=== PATIENT | female | born 1970 | race Caucasian/White ===

== ENCOUNTER 2020-07-05 14:04 | Inpatient (IN) | payer OTHER ==
[~2020-07-05] VITALS: Ht 157.5 cm; Wt 77.1 kg
[2020-07-05 14:27] VITALS: BP 173/106; Ht 157.5 cm; Wt 77.1 kg
--- NOTE | 2020-07-05 14:30 | NUR ---
Arrived as direct admit from physician's office, notified CANDACE Schultz, IV access started by BERNADETTE Ashford in Lt AC with 20 ga cath x 2 attempts (including 1 attempt by this RN), tao well, no s/s of acute distress observed.
[2020-07-05 15:24] LABS: BASOPHILS 0.5 % (0-2); EOSINOPHILS 3.6 % (0-7); HEMATOCRIT 38.7 % (36.0-48.0); HEMOGLOBIN 13.1 g/dL (12-16); IMMATURE GRANULOCYTES 0.4 % (0-5); LYMPHOCYTE ABS# 2.19 10x3/uL (1.18-3.74); LYMPHOCYTES 28.2 % (15-50); MCH 29.6 pg (26.0-34.0); MCHC 33.9 g/dL (31.0-37.0); MCV 87.4 fL (80.0-100.0); MEAN PLATELET VOLUME 10.5 fL (7.4-10.4); MONOCYTES 7.6 % (2-11); NEUTROPHIL ABS# 4.63 10x3/uL (1.56-6.13); NEUTROPHILS 59.7 % (40-80); PLATELET COUNT 284 10x3/uL (130-400); RBC 4.43 10x6/uL (4.00-5.40); RDW 12.5 % (11.5-14.5); WBC 7.8 10x3/uL (4.8-10.8)
[2020-07-05 15:39] LABS: APTT 31.4 SECONDS (22.8-39.4); INR 1.11 (0.85-1.17); PROTIME 13.2 SECONDS (11.6-15.0)
[2020-07-05 15:58] LABS: ALBUMIN 3.9 g/dL (3.4-5.0); ALKALINE PHOSPHATASE 65 U/L (30-120); ALT (SGPT) 22 U/L (10-68); BILIRUBIN - TOTAL 0.35 mg/dL (0.2-1.3); CALC OSMOLALITY 275 mosm/kg (275-300); CARBON DIOXIDE 27.9 mmol/L (21.0-32.0); CHLORIDE - SERUM 102 mmol/L (98-107); CKMB 1.1 U/L (0.0-3.6); CREATINE KINASE 88 UL (21-215); CREATININE - SERUM 0.9 mg/dL (0.6-1.3); GLUCOSE 106 mg/dL (74-106); POTASSIUM - SERUM 3.6 mmol/L (3.5-5.1); PRO BNP 173 pg/mL (0-125); PROTEIN - SERUM 7.6 g/dL (6.4-8.2); SODIUM 138 mmol/L (136-145); UREA NITROGEN 13 mg/dL (7-18); eGFR NON AFRICAN AMERICAN 70 mL/min (90-120)
[2020-07-05 15:59] LABS: TROPONIN-I < 0.017 ng/mL (0.000-0.060)
--- NOTE | 2020-07-05 16:05 | NUR ---
BP on admit was 173/106, gave hydralazine as ordered will brien in about an hour.
[2020-07-05] MEDS ORDERED: BAYER CHEWABLE81 MG PO (17:37)
[2020-07-05] MEDS ORDERED: MELATONIN10 M1 PO (17:38)
[2020-07-05] MEDS ORDERED: MULTI-DAY VITAM1 TAB PO (17:38)
[2020-07-05] MEDS ORDERED: IBUPROFEN800 MG PO (17:40)
[2020-07-05] MEDS ORDERED: ACETAMINOPHEN500 M1 PO (17:41)
[2020-07-05] MEDS ORDERED: LISINOPRIL20 MG PO (17:41)
[2020-07-05 17:45] VITALS: BP 142/84
[2020-07-05 18:34] VITALS: BP 129/70
[2020-07-05 21:14] VITALS: BP 141/87
--- NOTE | 2020-07-05 22:18 | NUR ---
PT WAS GIVEN TYLENOL EARLIER FOR C/O HEADACHE. SHE IS NOW C/O NO IMPROVEMENT IN HER HEADACHE AND WANTS SOMETHING DONE ABOUT IT. WILL PAGE MD FOR FURTHER ORDERS.
--- NOTE | 2020-07-05 22:52 | NUR ---
SPOKE WITH ELI HO OPTOMETRIST FOR [facility]. REPORTED HEADACHE/GLOBAL PAIN/NKA. ORDERS WILL BE WRITTEN AND ADMINISTERED.
[2020-07-05 23:00] LABS: CKMB 1.1 U/L (0.0-3.6); CREATINE KINASE 94 UL (21-215)
[2020-07-05 23:02] LABS: TROPONIN-I < 0.017 ng/mL (0.000-0.060)
--- NOTE | 2020-07-05 23:27 | NUR ---
PT HAS BEEN MEDICATED WITH NORCO 5MG X 1 FOR HEADACHE.
--- NOTE | 2020-07-05 23:27 | NUR ---
ICEPACK PROVIDED AT PT REQUEST.
[2020-07-06 01:47] VITALS: BP 118/80
[2020-07-06 04:04] LABS: CREATINE KINASE 90 UL (21-215)
[2020-07-06 04:05] LABS: TROPONIN-I < 0.017 ng/mL (0.000-0.060)
[2020-07-06 05:50] VITALS: BP 126/74
[2020-07-06 06:15] LABS: BASOPHILS 0.3 % (0-2); EOSINOPHILS 1.8 % (0-7); HEMOGLOBIN 13.7 g/dL (12-16); IMMATURE GRANULOCYTES 0.5 % (0-5); LYMPHOCYTE ABS# 2.91 10x3/uL (1.18-3.74); LYMPHOCYTES 30.3 % (15-50); MCH 28.8 pg (26.0-34.0); MCHC 33.4 g/dL (31.0-37.0); MCV 86.1 fL (80.0-100.0); MEAN PLATELET VOLUME 10.5 fL (7.4-10.4); MONOCYTES 7.2 % (2-11); NEUTROPHIL ABS# 5.76 10x3/uL (1.56-6.13); NEUTROPHILS 59.9 % (40-80); PLATELET COUNT 295 10x3/uL (130-400); RBC 4.76 10x6/uL (4.00-5.40); RDW 12.6 % (11.5-14.5); WBC 9.6 10x3/uL (4.8-10.8)
[2020-07-06 06:27] LABS: ALBUMIN 3.8 g/dL (3.4-5.0); ANION GAP 12.6 mmol/L (8-16); BILIRUBIN - TOTAL 0.26 mg/dL (0.2-1.3); CALCIUM 9.3 mg/dL (8.5-10.1); CARBON DIOXIDE 26.5 mmol/L (21.0-32.0); MAGNESIUM - SERUM 2.2 mg/dL (1.8-2.4); POTASSIUM - SERUM 3.1 mmol/L (3.5-5.1); PROTEIN - SERUM 7.6 g/dL (6.4-8.2)
[2020-07-06 07:34] VITALS: BP 111/70
[2020-07-06] MEDS ORDERED: BENICAR20 MG PO ×2 (08:36→09:29)
[2020-07-06] MEDS ORDERED: HCTZ25 MG PO (08:37)
[2020-07-06] MEDS ORDERED: HYDROCHLOROTH12.5 M1 PO (09:28)
--- NOTE | 2020-07-06 09:30 | NUR ---
PT WAS ON BENICAR/HCTZ 40-25 AND WAS ON MED RECONCILIATION. WRITTEN RX FOR PER DR VASQUEZ. SPOKE WITH DR VASQUEZ AND CONFIRMED . CALLED [facility] AND CORRECTED E SCRIBED PRESCRIPTION.
--- NOTE | 2020-07-06 09:33 | NUR ---
PT AWAKE AND ORIENTED, LYING IN BED. C/O HEADACHE, GAVE PRN MEDICATION. PT SISTER AT BEDSIDE. D/C ORDER IN. PT TOOK ALL MEDICATIONS WITHOUT COMPLICATIONS. CL IN REACH, SRX1
--- NOTE | 2020-07-06 10:11 | NUR ---
PT ESCORTED OUT VIA WHEELCHIAR TO POV, I/V OUT TIP INTACT. TELEMTRY REMOVED.
--- NOTE | 2020-07-06 17:09 | MORECARE ---
CASE MANAGEMENT DISCHARGE SUMMARY PATIENT: ALICIA YOUSSEF UNIT: [id number] ADM DATE: 07/05/20 AGE: 50 : 68 SEX: F ROOM/BED: D.5693 AUTHOR: NGUYEN BARROS PHYSICIAN: REFERRING PHYSICIAN: FER COTTRELL MD DATE OF SERVICE: 07/06/20 Case Management Discharge Planning Summary COMMENTS ENTERED DATE: 07/06/20 17:06 CT COMMENT TYPE: Discharge Planning REVIEWER: Hugo Hartley CM met with patient to complete DC plan and to evaluate needs. Patient lives independently alone but has family support and help. Patient stated that her home is safe and has electricity and running water. Patient stated that she has no problems paying for medications and she fills her medications at [facility]. Patient stated that her primary care physician is Dr. Cottrell. At discharge, the patient plans to return home and feels this is a safe discharge. CM discussed availability of home health, rehab services, and medical equipment. Patient declined HHS, SNF, IPR, and DME. Patient voiced no other needs at this time and is satisfied with DC plan. Transportation provider at discharge will be with her sisterMaddison, . CM will continue to follow and will assist as needed with dc plans/needs. VTP REVIEW SUMMARY ANTICIPATED D/C DATE: 07/06/2020 EXPECTED LOS : 1 CASE STATUS: DCP Initiated INITIAL REVIEW: 07/05/2020 INITIAL REVIEWER: Hugo Hartley FINAL DISCHARGE DISPOSITION: : FINAL REVIEWER: FINAL REVIEW DATE: VTP Focus Questions & Answers DCP Evaluation QUESTION: ANSWER Patient gives permission to discuss discharge plans with: (name, relationship and number) : sisterMaddison, Patient's ability to cope with chronic illness : d. No chronic illness Patient's current cognitive status: : *Oriented to person, place, situation, time and present Family / Caregiver's ability to cope with chronic illness: : a. Adequate (ability to meet patient's medical needs, ensures patient attends medical appts.) Patient and/or caregiver agree upon recommended discharge plan? : Yes Physical Status: : Independent with ADL's Family / Caregiver's ability to cope with chronic illness: : a. Adequate (ability to meet patient's medical needs, ensures patient attends medical appts.) Functional screen assessment: : Basic needs can adequately be met by self Does the patient have the ability to pay for or attain post discharge needs / services? : Yes Living Arrangements: : Home Alone with Support Is there a likelihood that the patient will require additional services to return to the preadmission environment? : No Equipment needed for post hospitalization: : None Baseline cognitive status: : *Oriented to person, place, situation, time and present Patient with capacity for self-care or can be cared for in same environment as prior to hospitalization? : Yes Physical environment modification needed / anticipated for discharge: : No Medication Management: : Patient states can afford medications Medication Management: : Patient states can read and understand medication labels Pharmacy name(s): : [facility] Does Patient have transportation to get home and to follow-up medical appointments when discharged from the hospital? : Yes Would patient like to participate in any Care Coordination programs (if applicable): : Not applicable Does the patient have electricity at home? : Yes Does the patient have running water in their house? : Yes Equipment in use: : None Mental health screen: : No mental health history DCP Re-evaluation QUESTION: ANSWER Would patient like to participate in any Care Coordination programs (if applicable): : Not applicable PATIENT: ALICIA YOUSSEF ENCOUNTER: [id number] MEDICAL RECORD#: [id number] ADMISSION DATE: 07/05/2020 DISCHARGE DATE: 07/06/2020 ATTENDING MD: SIMBA COTTRELL : AGE: 50 MARITAL STATUS: D DC PLAN ID: [id number] FACILITY: [facility] PRINTED ON: 07/06/20 17:09 CT All edits/amendments must be made on the electronic document DICTATION DATE: 07/06/201708 FENCE INSTALLER: DM 07/06/201708 RPT#: [id number] DC DATE:07/06/20 STATUS: DIS IN [facility] [address] [place] [address] END OF REPORT
--- NOTE | 2020-07-07 09:56 | CN ---
PATIENT NAME:ALICIA YOUSSEF MEDICAL RECORD: [id number] : 68 LOCATION:. D.2113 ADMIT DATE: 07/05/20 ACCOUNT: [id number] CONSULTING PHYSICIAN: LIMA VASQUEZ MD REFERRING PHYSICIAN: FER COTTRELL MD DATE OF CONSULTATION: 07/05/2020 HISTORY OF PRESENT ILLNESS: A 50-year-old female with no known history of coronary artery disease. She has a history of hypertension, recently ran out of her antihypertensives found to be markedly hypertensive at Dr. Bennett's office. She was admitted to the hospital for further evaluation, had been adjusting her own antihypertensives at home. Even by her report, she has gained 30 pounds over the last year. No set of exercise program. She reports some occasional dyspnea on exertion certainly consistent with deconditioning. We are asked to see her concerning her cardiovascular status. PAST MEDICAL HISTORY: Includes history of hypertension. ALLERGIES: None known. MEDICATIONS: Include Lisinopril 20 mg p.o. every day and clonidine 0.1 mg as needed. SOCIAL HISTORY: , nonsmoker, social drinker. No set exercise program. She is able to take care of his ADLs. REVIEW OF SYSTEMS: The patient reports easy bruising but reports no swollen glands. The patient reports no fever, no night sweats, no significant weight gain, no significant weight loss. No significant exercise tolerance. The patient reports no dry eyes, no irritation, no vision change. Patient reports no difficulty hearing and no ear pain. Patient reports no frequent nose bleeds or nose and sinus problems. Patient reports on arm pain on exertion. No shortness of breath while lying down. No history of heart murmur. Patient reports no cough, no wheezing or coughing up blood. Patient reports no abdominal pain, no vomiting. Normal appetite. No diarrhea and not vomiting blood. No nausea and no constipation. Patient reports no incontinence. No difficulty urinating. No hematuria. No increased frequency. Patient reports no muscle aches. No weakness, no arthralgias, no back pain. No swelling of the extremities. Patient reports no abnormal mole, no jaundice, no rashes. Reports no loss of consciousness. No weakness and no numbness. No seizures, dizziness, or headaches. The patient reports no depression, no sleep disturbance, feeling safe in a relationship and no alcohol abuse. Patient reports on fatigue. Reports no runny nose or sinus pressure. No itching, no hives, and no frequent sneezing. PHYSICAL EXAMINATION: GENERAL: No acute distress, appears stated age. VITAL SIGNS: Blood pressure 173/106. Pulse 76 and regular. HEENT: Normocephalic, atraumatic. NECK: No bruits noted. HEART: Regular. S4 gallop is noted. LUNGS: Good air excursion. ABDOMEN: Soft and nontender. Pulses 2+. EXTREMITIES: No edema. CONSULT REPORT [id number] ALICIA YOUSSEF IMPRESSION: At that point in time go ahead and start ARB as well as HCTZ. Check echocardiogram study for LV function as well as any significant LVH which will help guide antihypertensive therapy. I had a long discussion regarding lifestyle changes that would hopefully help with blood pressure control in the future as well. TRANSINT:[id number] Voice Confirmation ID: [id number] DOCUMENT ID: [id number] LIMA VASQUEZ MD at 0956 CC: [id number] DICTATION DATE: 07/05/20 170 HEAVY DUTY PRESS OPERATOR: 07/06/20 0146 DIS IN 07/06/20 [address] [place] [address]
== END 2020-07-06 10:12 | disposition home or self-care (01) | DRG 305 ==
LOC: D.M2 14:04
PROVIDERS: Emergency Medicine; ADMIT Family Medicine; ATTEND Family Medicine
DX: I16.9 Hypertensive crisis, unspecified (principal)